=== PATIENT | male | born 1995 | race Caucasian/White ===

== ENCOUNTER 2017-08-09 10:25 | Observation (INO) ==
[2017-08-09 10:42] LABS: Basophils # 0.1 K/mm3 (0-0.2); Basophils % 0.4 % (0.1-2.0); Eosinophils # 0.1 K/mm3 (0.0-0.4); Hematocrit 51.9 % (42.0-52.0); Hemoglobin 17.2 g/dL (14.1-18.0); Lymphocytes # 3.7 K/mm3 (0.7-4.5); Lymphocytes % 27.2 K/mm3 (10-50); Mean Corpuscular HGB Conc 33.1 g/dL (31.8-35.4); Mean Corpuscular Hemoglobin 29.3 pg (27.0-31.2); Mean Corpuscular Volume 88.6 fl (80-94); Mean Platelet Volume 7.3 fl (7.4-10.4); Monocytes # 0.7 K/mm3 (0.1-1.0); Monocytes % 5.3 % (1.7-9.3); Neutrophils # 8.9 K/mm3 (1.8-7.8); Platelet Count 317 K/mm3 (142-424); Red Blood Count 5.86 M/mm3 (4.60-6.20); Red Cell Distribution Width 12.8 % (11.5-17.5); White Blood Count 13.4 K/mm3 (4.5-13.0)
[2017-08-09 11:03] LABS: Alanine Aminotransferase 21 U/L (12-78); Albumin/Globulin Ratio 1.4 (1.1-1.8); Alkaline Phosphatase 118 U/L (46-116); Anion Gap 17.3 mEq/L (5-15); Aspartate Amino Transferase 17 U/L (15-37); Blood Urea Nitrogen 5 mg/dL (7-18); Calcium 9.9 mg/dL (8.5-10.1); Carbon Dioxide 21 mmol/L (21.0-32.0); Chloride 105 mmol/L (98-107); Creatine Kinase 195 U/L (39-308); Globulin 3.5 gm/dl (1.3-3.2); Glucose 133 mg/dL (74-106); Potassium 3.3 mmoL/L (3.5-5.1); Sodium 140 mmol/L (136-145); Total Protein,Serum 8.5 gm/dL (6.4-8.2)
--- NOTE | 2017-08-09 12:30 | Emergency Department Note ---
ED Disposition Clinical Impression: Hypokalemia, Drug abuse, Palpitations, Anxiety Disposition: Admitted As Inpatient Condition on Discharge: Fair Time of Disposition: 12:30 - Critical Care Critical Care Time: No Attestation: On 08/09/17, the high probability of a clinically significant, sudden or life threatening deterioration of the following system(s) required my full and direct attention, intervention and personal management. The time I documented below is in addition to time spent performing reported procedures but includes the following listed in this critical care notation. Medical Decision Making - Medical Records Medical records reviewed: Yes: I reviewed the patient's medical records. - Bernardo Inquiry Pt receiving controlled substance: No Vital Signs: 08/09/17 10:26 08/09/17 10:31 08/09/17 11:17 Temperature 98.2 F Temperature Source Oral Pulse Rate Pulse Rate [Right Brachial] 138 H 109 H 109 H Respiratory Rate 22 20 18 Blood Pressure Blood Pressure [Right Arm] 148/107 147/94 135/96 Blood Pressure Mean [Right Arm] 120 111 109 Blood Pressure Source Blood Pressure Source [Right Arm] Automatic Cuff Automatic Cuff Automatic Cuff Blood Pressure Position Blood Pressure Position [Right Arm] Sitting Sitting Sitting 02 Sat by Pulse Oximetry 99 100 100 Oxygen Delivery Method Room Air Room Air Room Air 08/09/17 11:55 08/09/17 12:00 08/09/17 12:30 Temperature Temperature Source Pulse Rate Pulse Rate [Right Brachial] 94 H 86 78 Respiratory Rate 18 18 20 Blood Pressure Blood Pressure [Right Arm] 141/82 144/90 147/87 Blood Pressure Mean [Right Arm] 101 108 107 Blood Pressure Source Blood Pressure Source [Right Arm] Automatic Cuff Automatic Cuff Automatic Cuff Blood Pressure Position Blood Pressure Position [Right Arm] Sitting Sitting Sitting 02 Sat by Pulse Oximetry 100 97 97 Oxygen Delivery Method Room Air 08/09/17 12:44 08/09/17 12:49 08/09/17 13:00 Temperature 99.6 F Temperature Source Oral Pulse Rate 92 H Pulse Rate [Right Brachial] 79 Respiratory Rate 18 18 Blood Pressure 144/90 Blood Pressure [Right Arm] 140/78 Blood Pressure Mean [Right Arm] 98 Blood Pressure Source Automatic Cuff Blood Pressure Source [Right Arm] Automatic Cuff Blood Pressure Position Sitting Blood Pressure Position [Right Arm] Sitting 02 Sat by Pulse Oximetry 97 Oxygen Delivery Method Room Air Room Air - Lab Data Lab results reviewed: Yes: I reviewed the patient's lab results. Lab Results 08/09/17 10:30: WBC 13.4 H, RBC 5.86, Hgb 17.2, Hct 51.9, MCV 88.6, MCH 29.3, MCHC 33.1, RDW 12.8, Plt Count 317, MPV 7.3 L, Neut % (Auto) 66.0, Lymph % (Auto ) 27.2, Hodgeman % (Auto) 5.3, Eos % (Auto) 1.0, Baso % (Auto) 0.4, Neut # (Auto) 8.9 H, Lymph # (Auto) 3.7, Hodgeman # (Auto) 0.7, Eos # (Auto) 0.1, Baso # (Auto) 0.1 08/09/17 10:30: D-Dimer < 100 08/09/17 10:30: Sodium 140, Potassium 3.3 L, Chloride 105, Carbon Dioxide 21, Anion Gap 17.3 H, BUN 5 L, Creatinine 1.03 D, Estimated Creat Clear 161, Estimated GFR 92, Est GFR ( Amer) 111 D, Glucose 133 H, Calcium 9.9, Total Bilirubin 1.0, AST 17, ALT 21, Alkaline Phosphatase 118 H, Total Creatine Kinase 195, CK-MB (CK-2) 2.9, CK-MB (CK-2) Rel Index 1.5, Troponin I < 0.02, Total Protein 8.5 H, Albumin 5.0, Globulin 3.5 H, Albumin/Globulin Ratio 1.4 08/09/17 10:30: TSH 2.11 Result diagrams: 08/09/17 10:30 08/10/17 05:55 Orders (Tests/Meds): ED MEDICATIONS Generic Name Dose Route Start Last Admin Trade Name Freq PRN Reason Stop Dose Admin Sodium Chloride 1,000 mls @ 125 mls/hr 08/09/17 12:46 08/10/17 04:46 Sod Chlor 0.9% 1000ml Bag IV 09/08/17 12:45 Not Given .Q8H REX Potassium Chloride 20 meq 08/10/17 09:00 Klor-Con 20meq Tablet PO 09/09/17 08:59 DAILY REX Sertraline HCl 50 mg 08/10/17 09:00 Zoloft 50mg Tablet PO 09/09/17 08:59 DAILY REX Discontinued Medications Generic Name Dose Route Start Last Admin Trade Name Grayson PRN Reason Stop Dose Admin Hydroxyzine Pamoate 50 mg 08/10/17 03:00 08/10/17 03:10 Vistaril 25mg Capsule PO 08/10/17 03:01 50 mg ONCE ONE Administration Potassium Chloride 40 meq 08/09/17 11:40 08/09/17 12:21 Klor-Con 20meq Tablet PO 08/09/17 11:41 40 meq ONCE ONE Administration ORDERS Category Date Time Status Consult to Case Management [CONS] Routine Cons 08/09/17 12:46 Active - US Data US Images: Other (2D ECHO) ED US Reviewed: Yes: I have reviewed the patient's US results, I discussed the US results w/the radiologist, I have viewed radiologist's interpretation Preliminary Findings: Normal/NAD Findings Narrative: [address] [facility] [address] [place] [address] Cardiology Report Signed Patient: Ed Alatorre MR#: [id number] : 1995 Acct:[id number] Age/Sex: 21 / M ADM Date: 08/09/17 Loc: 2ND 204-[address]: Aung Jones MD Ordering Physician: Kp Polk MD Date of Service: 08/09/17 Procedure(s): CA echo doppler complete Accession Number(s): [id number] cc: Kp Polk MD; Chadwick Alexandra MD~ PROCEDURE: 2-D M-mode and color Doppler study INDICATIONS FOR THE TEST: Chest pain COPD Heart Murmur+ Tobacco Smoking+ Palpitations+ Fatigue Syncope Edema Hypertension Diabetes Mellitus Rheumatic Fever SOB EGAN+Obesity Hyperlipidemia Family History HD Additional History Ecstasy and ETHOL last night with palpitations after, lightheadedness, Asthma, PATIENT INFORMATION HEIGHT: 75 WEIGHT: 220 GENDER: Male B/P: 141/84 2-D/M-MODE INTERPRETATION: 2-D MEASUREMENTS OBSERVED VALUES IN CMS Right Ventricular Dimension (RVDd) 2.5 Interventricular Septum (Thickness)(IVsd) 1.1 Left Ventricular Internal Dimensions(LVIDd) 3.9 Left Ventricular Posterior Wall (Thickness)(LVPWd) 1.1 Aortic Root 3.2 Aortic Cusp Separation 2.4 Left Atrial Dimensions (LAD) 3.0 2D 1. Left atrium is normal size, left ventricle is normal size, there is no concentric left ventricular hypertrophy, visually estimated ejection fraction of 55% with no obvious regional wall motion abnormality. 2. The right atrium and right ventricle are normal size and contractility. 3. The aortic, mitral and tricuspid valve is normal. 4. The pulmonic valve is poorly visualized. 5. No significant pericardial effusion noted. DOPPLER INTERROGATION: Doppler interrogation of the aortic, mitral and tricuspid valvular presence of mild mitral and tricuspid regurgitation, tricuspid regurgitant jet velocity is insufficient for calculation of the right ventricular systolic pressure, diastolic parameters are within normal range. CONCLUSION: 1. Normal left ventricular size, preserved left ventricular systolic function, visually estimated ejection fraction 55% with no obvious regional wall motion abnormality, diastolic parameters are within normal range. 2. Mild mitral and tricuspid regurgitation 3. No significant pericardial effusion noted. Dictated By: Chadwick Alexandra MD Signed By: <Electronically signed by Chadwick Alexandra MD in OV> 08/09/17 2106 DD/ 1223 - ECG Data Tracing #1 I reviewed this ECG and interpreted as documented below: no acute ischemic changes, no ectopies Normal Sinus Rhythm: No Arrhythmias present: sinus tach - Physician Consults Physician Consulted: Dr Donovan Time: 12:20 Reason -: Admission, Pt condition, Cardiology Eval/Care Comment/Response: Dr. Deondre Donovan came to the emergency room with his PA, evaluated patient, recommended an echocardiogram was eventually read as all within normal limits. Dr. Donovan cleared patient from cardiology standpoint. - Reevaluation(s) Time: 12:10 Reevaluation #1: Patient is remorseful, genetic to his family about his drug habit, and is seeking help. Plan is to admit patient to the hospital for drug abuse and palpitations, and when medically stable to seek placement with outpatient rehab facility. Case discussed with care management as well, prior to admission. She will see the patient upstairs. Anxiety HPI - General Chief Complaint: Anxiety Stated Complaint: anxiety, heart racing Time Seen by Provider: 08/09/17 10:35 Mode of Arrival: Ambulatory Source of Information: Patient Limitations: No Limitations Description of Symptoms (Recalled from ER Triage Doc. by RN): Pt reports feeling anxious, states hasn't felt well since he woke up this morning, states feels like his heart is racing. Pt reports was in the ER lastnight r/t his heart racing r/t ecstacy use [employer]. Pt denies presence of pain. Upon arrival to ER pt RR was elevated, pt hands were clenched, pt appearted to be anxious. - History of Present Illness HPI narrative: Patient is a 21-year-old male arriving to the emergency room feeling apprehensive, anxious, with palpitations, shortness of breath since waking up this morning. Patient was seen in the emergency room last night, with similar complaints, after he admitted to his mother that he has done 1 dose of ecstasy 24 hrs prior. Upon arrival to the emergency room the patient has also admitted today that in addition to the ecstasy done 2 days ago he is also been being amphetamine, cocaine and smoking weed occasionally. Patient denies any suicidal or homicidal ideation. Parent at bedside. Patient walked into the emergency room with fingers playing with perioral numbness and fingertips numbness. He has not eaten a meal or had fluids to drink within 3 days. MD complaint: anxiety, heart racing, shortness of breath Onset (ago): minute(s) (60) Severity: moderate Quality: intermittent Place: home History of similar episodes: Yes Provoking factors: emotional stress, other (ecstasy) Relieving factors: rest Exacerbating factors: thinking about event Associated symptoms: shortness of breath, palpitations, malaise - Related Data Home Medications: Home Medications Medication Instructions Recorded Confirmed Sertraline HCl [Zoloft] 50 mg PO DAILY 08/08/17 08/09/17 Allergies/Adverse Reactions: Allergies Allergy/AdvReac Type Severity Reaction Status Date / Time No Known Allergies Allergy Unverified 01/26/17 15:00 [facility] History I have reviewed the patient's past medical history: Yes Medical History: Denies:: Cancer, Diabetes Mellitus Type 1, Diabetes Mellitus Type 2, MRSA Amputation: No Fractures: No - Social History Smoking Status: Current every day smoker Tobacco Type: cigarettes Alcohol Intake: never Substance Use Type: marijuana - Psychiatric History Expresses thoughts of harming self/others: None Suicide Plan Description: No Plan ROS Obtained: Yes All systems reviewed & no additional complaints, Yes Systems reviewed as appropriate & no additional complaints - Cardiovascular Cardiovascular: Reports system reviewed and no additional complaints, except as docu, Reports as per HPI, Reports palpitations - Respiratory Respiratory: Yes system reviewed and no additional complaints, except as docu, Yes as per HPI, Yes dyspnea - Neurologic Neurologic: Reports system reviewed and no additional complaints, except as docu , Reports as per HPI, Reports other (anxiety) Physical Exam - General General appearance: alert, anxious, in distress - Head Head exam: atraumatic, normocephalic, normal inspection - Eye Eye exam: Present: normal appearance, PERRL, EOMI, other (normal fundi) - Neck Neck exam: Present: normal inspection, full ROM, trachea midline. Absent: meningismus, lymphadenopathy - Chest Chest inspection: Present: normal inspection, symmetric chest wall rise. Absent : tenderness - Respiratory Respiratory exam: Present: normal lung sounds bilaterally. Absent: respiratory distress - Cardiovascular Cardiovascular exam: Present: tachycardia. Absent: JVD - Abdominal Exam Abdominal exam: Present: soft, normal bowel sounds. Absent: distention, tenderness, guarding - Extremities Exam Extremities exam: Present: normal inspection, full ROM, normal capillary refill. Absent: calf tenderness - Back Exam Back exam: Present: normal inspection. Absent: tenderness - Neurological Exam Neurological exam: Present: alert, oriented X3, CN II-XII intact, normal gait - Psychiatric Psychiatric exam: Present: normal affect, normal mood - Skin Skin exam: Present: warm, dry, intact, normal color
--- NOTE | 2017-08-09 13:03 | Consult Report ---
History of Present Illness Consult date: 08/09/17 Consult reason: chest pain Chief complaint: chest pain and palpitations Additional Medical History:: 1. Chest pain a. Pressure of the left chest wall for past 2 days after experimenting with illegal drugs. b. second visit to the ER in past one day for chest pressure. 2. Anxiety a. History of panic attacks. 3. Palpitations a. Experimenting with illegal drugs 4. Tobacco abuse a. Smokes 1pp for the past 3 years. 5. Substance Abuse a. Regular usage of Marijuania for past 1-2 years. b. Experimenting with usage of Meth and Ectasy. History of present illness: 21-year-old male admitted to the emergency room with palpitations and chest pain. Patient stated that he has been experimenting with illegal drugs such as meth and ecstasy for the past few days. Patient started experiencing left chest wall pain and palpitations 2 days ago in which he did present in the emergency room with these complaints. Patient stated that he has been depressed for a few weeks feels much better and is able to focus more when he is taking marijuana. Patient denies any suicidal ideation. Patient stated that he smokes 1 pack per day of cigarettes and has for a few years. He denies shortness of breath. Denies any swelling of his lower extremities. Denies dizziness. Patient denies coronary artery disease or hypertension. Initial EKG revealed sinus tachycardia, possible left atrial enlargement, ST abnormality, with a heart rate of 125bpm. ED physician said that patient presented in the emergency room yesterday, his heart rate was in the 150s. Baseline labs in the ER were obtained. Echocardiogram will be obtained to assess for LV function and valve status. Patient was agreeable with mother and aunt in the room, while Dr. Donovan spoke with patient regarding illegal substance abuse. Lengthy discussion on the effects of substance abuse on the heart was discussed with the patient. Patient was very tearful and stated that he knows he needs assistance. No further cardiac evaluation is recommended at this time. Tobacco cessation was advised and recommended. Substance abuse cessation was advised and recommended. ER physician was agreeable to plan. We will have patient follow-up with cardiology on an as-needed basis. [facility] History Medical History: Denies:: Cancer, Diabetes Mellitus Type 1, Diabetes Mellitus Type 2, MRSA Amputation: No Fractures: No - *Social History Smoking Status: Current every day smoker Tobacco Type: cigarettes Alcohol Intake: never Substance Use Type: marijuana - Psychiatric History Expresses thoughts of harming self/others: None Suicide Plan Description: No Plan Meds Home Medications Medication Instructions Recorded Confirmed Type Sertraline HCl [Zoloft] 50 mg PO DAILY 08/08/17 08/09/17 History Allergies Allergy/AdvReac Type Severity Reaction Status Date / Time No Known Allergies Allergy Unverified 01/26/17 15:00 Review of Systems - Review of Systems Review of systems:: pertinent systems reviewed and negative unless documented below - Constitutional Reports excessive sweating, Reports lack of energy - *Cardiovascular Reports chest pain, Reports chest pain at rest, Reports chest pain with activity , Reports excessive sweating, Reports fast heart rate - *Respiratory Denies chest congestion, Denies cough, Denies shortness of breath, Denies shortness of breath with activity, Denies wheezing - *Gastrointestinal Denies abdominal pain, Denies difficulty swallowing, Denies heartburn - *Musculoskeletal Denies abnormal walking, Denies muscle weakness, Denies stiffness - *Neurologic Denies abnormal walking, Denies confusion, Denies headache(s), Denies seizure- like activity, Denies dizziness - Psychiatric Reports abnormal sleep pattern, Reports lack of enjoyment, Reports anxiety, Reports change in appetite, Reports mood swings, Reports panic attacks, Denies hearing things others do not hear, Denies thoughts of hurting/killing others, Denies irritability, Denies thoughts of hurting/killing yourself, Denies tactile hallucinations, Denies seeing things others do not see Exam Vital signs and Labs for Last 24 Hours: Temp Pulse Resp BP Pulse Ox 99.6 F 79 18 140/78 97 08/09/17 12:44 08/09/17 12:49 08/09/17 12:49 08/09/17 12:49 08/09/17 12:49 Laboratory Results - last 24 hr 08/09/17 10:30: WBC 13.4 H, RBC 5.86, Hgb 17.2, Hct 51.9, MCV 88.6, MCH 29.3, MCHC 33.1, RDW 12.8, Plt Count 317, MPV 7.3 L, Neut % (Auto) 66.0, Lymph % (Auto ) 27.2, Schley % (Auto) 5.3, Eos % (Auto) 1.0, Baso % (Auto) 0.4, Neut # (Auto) 8.9 H, Lymph # (Auto) 3.7, Schley # (Auto) 0.7, Eos # (Auto) 0.1, Baso # (Auto) 0.1 08/09/17 10:30: D-Dimer < 100 08/09/17 10:30: Sodium 140, Potassium 3.3 L, Chloride 105, Carbon Dioxide 21, Anion Gap 17.3 H, BUN 5 L, Creatinine 1.03 D, Estimated Creat Clear 161, Estimated GFR 92, Est GFR ( Amer) 111 D, Glucose 133 H, Calcium 9.9, Total Bilirubin 1.0, AST 17, ALT 21, Alkaline Phosphatase 118 H, Total Creatine Kinase 195, CK-MB (CK-2) 2.9, CK-MB (CK-2) Rel Index 1.5, Troponin I < 0.02, Total Protein 8.5 H, Albumin 5.0, Globulin 3.5 H, Albumin/Globulin Ratio 1.4 08/09/17 10:30: TSH 2.11 I & O for Last 24 hours: Intake & Output 08/06/17 08/07/17 08/08/17 08/09/17 23:59 23:59 23:59 23:59 Weight 220 lb - Constitutional no acute distress, average body habitus - *Routine HEENT Exam Head: Present: normocephalic ENT: Present: mucous membranes moist - *Routine Neck Exam Present: supple, full ROM, normal carotid upstroke. Absent: JVD, carotid bruit , lymphadenopathy, trachea midline - Routine Chest/Breast/Axilla Exam Chest wall: Absent: tenderness, mass - *Routine Respiratory Exam Present: accessory muscle use, CTA bilaterally. Absent: respiratory distress, wheezes - *Routine Cardiovascular Exam Present: RRR, Normal S1, Normal S2, tachycardia. Absent: murmur, gallop, rubs, JVD - *Routine Abdominal Exam Present: soft. Absent: guarding - *Routine Extremities Exam Present: full ROM, pulses intact, normal capillary refill. Absent: cyanosis, clubbing, edema - Routine Back/Spine/Pelvis Exam Back/Spine: Present: full ROM. Absent: CVA tenderness - *Routine Skin Exam Present: intact, dry, warm. Absent: lesions - *Routine Neurological Exam Present: alert, oriented X3, CN II-XII intact, moving all extremities, normal speech - Routine Psychiatric Exam Present: normal affect, cooperative, anxious. 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 Obtain Echocardiogram prior to discharge from the Emergency department. 2. Tobacco cessation advised and recommended. 3. Substance abuse cessation advised and recommended. 4. Cardiac clinic follow up as needed.
--- NOTE | 2017-08-09 13:37 | Pharmacy Consult Notes ---
[facility] Pharmacy VTE Monitoring - Patient Demographics Admission date: 08/09/17 Report Date: 08/09/17 Time: 13:37 Allergies/Adverse Reactions: Patient Allergies No Known Allergies Allergy (Unverified 01/26/17 15:00) Height: 1.91 m Weight: 99.79 kg Patient Problems: Current Active Problems Hypokalemia (Acute) Drug abuse (Acute) Palpitations (Acute) - VTE Risk Labs: VTE Related Lab Results Hgb 17.2 g/dL (14.1-18.0) 08/09/17 10:30 Hct 51.9 % (42.0-52.0) 08/09/17 10:30 Plt Count 317 K/mm3 (142-424) 08/09/17 10:30 BUN 5 mg/dL (7-18) L 08/09/17 10:30 Creatinine 1.03 mg/dL (0.70-1.30) D 08/09/17 10:30 Estimated Creat Clear 161 mL/min (0-300) 08/09/17 10:30 Clinical Trial Participant: No - Prophylaxis VTE Prophylaxis Ordered?: Yes Types of VTE Prophylaxis: TEDS Knee High
--- NOTE | 2017-08-09 15:12 | History & Physical Report ---
*Admission Date: 08/09/17 <MeyerHaydeeKristin 08/09/17 15:16> *Chief complaint: heart racing and chest pain <Kristin Meyer 08/09/17 15:16> *History of present illness: Mr. Alatorre is a 21-year-old white male who presented to the emergency room this a.m. after awakening with chest pressure and heart racing. He states this all started yesterday as a result of using ecstasy and other drugs. He was actually seen in the emergency room yesterday and given IV fluids and metoprolol IV. He was discharged home. He states his heart continued to race. He was able to rest a little during the night but awakened this morning again with a rapid heart rate. Thus he was seen in the emergency room again this a.m. He has also been seen by cardiology and remains on IV fluids. Initial EKG revealed sinus tachycardia, possible left atrial enlargement, ST abnormality, with a heart rate of 125bpm. ED physician said that patient presented in the emergency room yesterday, his heart rate was in the 150s. Baseline labs in the ER were obtained. Echocardiogram will be obtained to assess for LV function and valve status. As per cardiology note patient was agreeable with mother and aunt in the room, while Dr. Donovan spoke with patient regarding illegal substance abuse. Lengthy discussion on the effects of substance abuse on the heart was discussed with the patient. Patient was very tearful and stated that he knows he needs assistance. Patient states he is just now beginning to feel better. He has had a few bites of applesauce without problems. He has been voiding. <Kristin Meyer 08/09/17 15:26> [facility] History Medical History: Reports:: Asthma, Depression, Gastroesophageal Reflux Disease( GERD) Denies:: Atherosclerotic Heart Disease, Cancer, Chronic Obstructive Pulmonary Disease (COPD), Diabetes Mellitus Type 1, Diabetes Mellitus Type 2, Internal Pacemaker, MRSA <Kristin Meyer 08/09/17 15:26> Other Surgeries: No: Pacemaker <Kristin Meyer 08/09/17 15:16> Amputation: No <Kristin Meyer 08/09/17 15:16> Fractures: No <Kristin Meyer 08/09/17 15:16> - *Social History Educational Level: Attended [employer] <Kristin Meyer 08/09/17 15:16> Smoking Status: Current every day smoker <MitchKristin 08/09/17 15:16> Tobacco Type: cigarettes <MitchKristin 08/09/17 15:16> # Packs/Day (cigarettes): 1 <Kristin Meyer 08/09/17 15:16> Alcohol Intake: never <MitchKristin 08/09/17 15:16> Alcohol Intake Frequency:: a few times a week <MeyerKristin 08/09/17 15:16> Substance Use Type: marijuana <MitchKristin 08/09/17 15:16> Last Used Substance: days (ago) <MitchKristin 08/09/17 15:16> Occupational Status: employed <MitchKristin 08/09/17 15:16> Housing: house <MitchKristin 08/09/17 15:16> Household Members: family <MitchKristin 08/09/17 15:16> - Psychiatric History Expresses thoughts of harming self/others: None <MitchKristin 08/09/17 15: 16> Suicide Plan Description: No Plan <MitchKristin 08/09/17 15:16> *Family Hx:: No significant family history <MitchKristin 08/09/17 15:16> Review of Systems - Constitutional Denies fever(s), Denies headache(s) <Meyer,Kristin 08/09/17 15:26> - ENT Denies ear pain, Denies sore throat <Meyer,Kristin 08/09/17 15:26> - *Cardiovascular Reports chest pain, Reports rapid, pounding, or irregular heartbeat, Denies shortness of breath, Denies leg swelling <Meyer,Kristin 08/09/17 15:26> - *Respiratory Denies chest congestion, Denies cough, Denies shortness of breath <Meyer, Kristin 08/09/17 15:26> - *Gastrointestinal Denies abdominal pain, Denies heartburn, Denies nausea, Denies vomiting < Kristin Meyer 08/09/17 15:26> - *Genitourinary Denies difficulty urinating <Kristin Meyer - 08/09/17 15:26> - *Musculoskeletal Denies abnormal walking <Kristin Meyer - 08/09/17 15:26> - *Neurologic Denies abnormal walking, Denies confusion, Denies headache(s), Denies seizure- like activity, Denies dizziness <Kristin Meyer - 08/09/17 15:16> Meds Home Medications Medication Instructions Recorded Confirmed Type Sertraline HCl [Zoloft] 50 mg PO DAILY 08/08/17 08/09/17 History <KarenAung peterson - 08/09/17 18:18> Allergies Allergy/AdvReac Type Severity Reaction Status Date / Time No Known Allergies Allergy Unverified 01/26/17 15:00 <Aung Jones - 08/09/17 18:18> Exam Vital signs and Labs for Last 24 Hours: Temp Pulse Resp BP Pulse Ox 98.7 F 92 H 16 149/77 97 08/09/17 16:00 08/09/17 16:00 08/09/17 16:00 08/09/17 16:00 08/09/17 16:00 Laboratory Results - last 24 hr 08/09/17 10:30: WBC 13.4 H, RBC 5.86, Hgb 17.2, Hct 51.9, MCV 88.6, MCH 29.3, MCHC 33.1, RDW 12.8, Plt Count 317, MPV 7.3 L, Neut % (Auto) 66.0, Lymph % (Auto ) 27.2, [place] % (Auto) 5.3, Eos % (Auto) 1.0, Baso % (Auto) 0.4, Neut # (Auto) 8.9 H, Lymph # (Auto) 3.7, [place] # (Auto) 0.7, Eos # (Auto) 0.1, Baso # (Auto) 0.1 08/09/17 10:30: D-Dimer < 100 08/09/17 10:30: Sodium 140, Potassium 3.3 L, Chloride 105, Carbon Dioxide 21, Anion Gap 17.3 H, BUN 5 L, Creatinine 1.03 D, Estimated Creat Clear 161, Estimated GFR 92, Est GFR ( Amer) 111 D, Glucose 133 H, Calcium 9.9, Total Bilirubin 1.0, AST 17, ALT 21, Alkaline Phosphatase 118 H, Total Creatine Kinase 195, CK-MB (CK-2) 2.9, CK-MB (CK-2) Rel Index 1.5, Troponin I < 0.02, Total Protein 8.5 H, Albumin 5.0, Globulin 3.5 H, Albumin/Globulin Ratio 1.4 08/09/17 10:30: TSH 2.11 <Aung Jones - 08/09/17 18:18> Temp Pulse Resp BP Pulse Ox 98.4 F 115 H 18 149/93 99 08/09/17 13:36 08/09/17 13:36 08/09/17 13:36 08/09/17 13:36 08/09/17 13:36 Laboratory Results - last 24 hr 08/09/17 10:30: WBC 13.4 H, RBC 5.86, Hgb 17.2, Hct 51.9, MCV 88.6, MCH 29.3, MCHC 33.1, RDW 12.8, Plt Count 317, MPV 7.3 L, Neut % (Auto) 66.0, Lymph % (Auto ) 27.2, [place] % (Auto) 5.3, Eos % (Auto) 1.0, Baso % (Auto) 0.4, Neut # (Auto) 8.9 H, Lymph # (Auto) 3.7, [place] # (Auto) 0.7, Eos # (Auto) 0.1, Baso # (Auto) 0.1 08/09/17 10:30: D-Dimer < 100 08/09/17 10:30: Sodium 140, Potassium 3.3 L, Chloride 105, Carbon Dioxide 21, Anion Gap 17.3 H, BUN 5 L, Creatinine 1.03 D, Estimated Creat Clear 161, Estimated GFR 92, Est GFR ( Amer) 111 D, Glucose 133 H, Calcium 9.9, Total Bilirubin 1.0, AST 17, ALT 21, Alkaline Phosphatase 118 H, Total Creatine Kinase 195, CK-MB (CK-2) 2.9, CK-MB (CK-2) Rel Index 1.5, Troponin I < 0.02, Total Protein 8.5 H, Albumin 5.0, Globulin 3.5 H, Albumin/Globulin Ratio 1.4 08/09/17 10:30: TSH 2.11 <Kristin Meyer 08/09/17 15:16> I & O for Last 24 hours: Intake & Output 08/07/17 08/08/17 08/09/17 08/10/17 11:59 11:59 11:59 11:59 Weight 220 lb 220 lb <Aung Jones - 08/09/17 18:18> Intake & Output 08/07/17 08/08/17 08/09/17 08/10/17 11:59 11:59 11:59 11:59 Weight 220 lb 220 lb <Kristin Meyer 08/09/17 15:16> - Constitutional no acute distress <Kristin Meyer 08/09/17 15:26> - *Routine HEENT Exam Head: Present: normocephalic, atraumatic <Kristin Meyer 08/09/17 15:26> Eye: Present: PERRL <Kristin Meyer 08/09/17 15:26> ENT: Present: mucous membranes moist, oropharynx clear, nares patent <Kristin Meyer 08/09/17 15:26> - *Routine Neck Exam Present: supple. Absent: carotid bruit, lymphadenopathy, thyromegaly <Kristin Meyer 08/09/17 15:26> - *Routine Respiratory Exam Present: CTA bilaterally (Anteriorly and posteriorly) <Kristin Meyer 15:26> - *Routine Cardiovascular Exam Present: RRR <Kristin Meyer 08/09/17 15:26> - *Routine Abdominal Exam Present: soft, normoactive bowel sounds. Absent: tenderness, distended, guarding, organomegaly, mass <Kristin Meyer 08/09/17 15:26> - *Routine Extremities Exam Present: full ROM. Absent: edema, calf tenderness <Kristin Meyer 08/09/17 15:26> - *Routine Neurological Exam Present: alert, oriented X3, moving all extremities, normal speech. Absent: tremors <Kristin Meyer 08/09/17 15:26> - Routine Psychiatric Exam Present: normal thought process, cooperative, anxious <Kristin Meyer 15:26> H&P: Result - Labs Labs: Short CBC 08/09/17 Range/Units 10:30 WBC 13.4 H (4.5-13.0) K/mm3 Hgb 17.2 (14.1-18.0) g/dL Hct 51.9 (42.0-52.0) % Plt Count 317 (142-424) K/mm3 [facility] 08/09/17 10:30 Sodium 140 Potassium 3.3 L Chloride 105 Carbon Dioxide 21 BUN 5 L Creatinine 1.03 D Glucose 133 H Calcium 9.9 Cardiac Enzymes 08/09/17 Range/Units 10:30 Total Creatine Kinase 195 (39-308) U/L CK-MB (CK-2) 2.9 (0.0-3.6) ng/ml Troponin I < 0.02 (0.00-0.06) ng/ml Liver Function 08/09/17 Range/Units 10:30 Total Bilirubin 1.0 (0.2-1.0) mg/dL AST 17 (15-37) U/L ALT 21 (12-78) U/L Alkaline Phosphatase 118 H (46-116) U/L Albumin 5.0 (3.4-5.0) gm/dL <Aung Jones - 08/09/17 18:18> Short CBC 08/09/17 Range/Units 10:30 WBC 13.4 H (4.5-13.0) K/mm3 Hgb 17.2 (14.1-18.0) g/dL Hct 51.9 (42.0-52.0) % Plt Count 317 (142-424) K/mm3 [facility] 08/09/17 10:30 Sodium 140 Potassium 3.3 L Chloride 105 Carbon Dioxide 21 BUN 5 L Creatinine 1.03 D Glucose 133 H Calcium 9.9 Cardiac Enzymes 08/09/17 Range/Units 10:30 Total Creatine Kinase 195 (39-308) U/L CK-MB (CK-2) 2.9 (0.0-3.6) ng/ml Troponin I < 0.02 (0.00-0.06) ng/ml Liver Function 08/09/17 Range/Units 10:30 Total Bilirubin 1.0 (0.2-1.0) mg/dL AST 17 (15-37) U/L ALT 21 (12-78) U/L Alkaline Phosphatase 118 H (46-116) U/L Albumin 5.0 (3.4-5.0) gm/dL <Kristin Meyer - 08/09/17 15:16> 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.10 - Hallucinogen abuse, uncomplicated (2) Drug abuse Current visit: Yes Status: Acute Category: Medical Code(s): F19.10 - Other psychoactive substance abuse, uncomplicated (3) Palpitations Current visit: Yes Status: Acute Category: Medical Code(s): R00.2 - Palpitations (4) Hypokalemia Current visit: Yes Status: Acute Category: Medical Code(s): E87.6 - Hypokalemia <Aung Jones - 08/09/17 18:18> (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 Concur with above assessment and plan. He has been accepted at [facility] rehab when deemed medically stable. Will repeat labs in AM but should be ready for discharge tomorrow. <Aung Jones - 08/09/17 18:18> IVF's; ECHO; has received KCL <Kristin Meyer - 08/09/17 15:26>
--- NOTE | 2017-08-09 21:11 | Cardiology Report ---
PROCEDURE: 2-D M-mode and color Doppler study INDICATIONS FOR THE TEST: Chest pain COPD Heart Murmur+ Tobacco Smoking+ Palpitations+ Fatigue Syncope Edema Hypertension Diabetes Mellitus Rheumatic Fever SOB EGAN+Obesity Hyperlipidemia Family History HD Additional History Ecstasy and ETHOL last night with palpitations after, lightheadedness, Asthma, PATIENT INFORMATION HEIGHT: 75 WEIGHT: 220 GENDER: Male B/P: 141/84 2-D/M-MODE INTERPRETATION: 2-D MEASUREMENTS OBSERVED VALUES IN CMS Right Ventricular Dimension (RVDd) 2.5 Interventricular Septum (Thickness)(IVsd) 1.1 Left Ventricular Internal Dimensions(LVIDd) 3.9 Left Ventricular Posterior Wall (Thickness)(LVPWd) 1.1 Aortic Root 3.2 Aortic Cusp Separation 2.4 Left Atrial Dimensions (LAD) 3.0 2D 1. Left atrium is normal size, left ventricle is normal size, there is no concentric left ventricular hypertrophy, visually estimated ejection fraction of 55% with no obvious regional wall motion abnormality. 2. The right atrium and right ventricle are normal size and contractility. 3. The aortic, mitral and tricuspid valve is normal. 4. The pulmonic valve is poorly visualized. 5. No significant pericardial effusion noted. DOPPLER INTERROGATION: Doppler interrogation of the aortic, mitral and tricuspid valvular presence of mild mitral and tricuspid regurgitation, tricuspid regurgitant jet velocity is insufficient for calculation of the right ventricular systolic pressure, diastolic parameters are within normal range. CONCLUSION: 1. Normal left ventricular size, preserved left ventricular systolic function, visually estimated ejection fraction 55% with no obvious regional wall motion abnormality, diastolic parameters are within normal range. 2. Mild mitral and tricuspid regurgitation 3. No significant pericardial effusion noted.
[2017-08-10 06:39] LABS: Anion Gap 12.7 mEq/L (5-15); Calcium 9.6 mg/dL (8.5-10.1); Potassium 3.7 mmoL/L (3.5-5.1)
--- NOTE | 2017-08-10 07:52 | Progress Note ---
<Kristin Meyer - Last Filed: 08/10/17 07:53> Internal Medicine - PN: Subj *Date: 08/10/17 *Time: 07:53 Interval history: Patient feels better this morning. He had Vistaril around 3:00 when he was unable to relax and goes he states he felt anxious and cannot stop thinking about everything. He did eat some dinner last night and did well. He is getting ready to eat breakfast. He denies chest pain and shortness of breath. He has no paresthesias. Heart has been regular without palpitations. He is voiding without difficulty and bowels have moved. Labs are normal this morning. Exam Vital signs and Labs for Last 24 Hours: Temp Pulse Resp BP Pulse Ox 97.7 F 84 18 122/74 98 08/10/17 07:46 08/10/17 07:46 08/10/17 07:46 08/10/17 07:46 08/10/17 07:46 Laboratory Results - last 24 hr 08/09/17 10:30: WBC 13.4 H, RBC 5.86, Hgb 17.2, Hct 51.9, MCV 88.6, MCH 29.3, MCHC 33.1, RDW 12.8, Plt Count 317, MPV 7.3 L, Neut % (Auto) 66.0, Lymph % (Auto ) 27.2, [place] % (Auto) 5.3, Eos % (Auto) 1.0, Baso % (Auto) 0.4, Neut # (Auto) 8.9 H, Lymph # (Auto) 3.7, [place] # (Auto) 0.7, Eos # (Auto) 0.1, Baso # (Auto) 0.1 08/09/17 10:30: D-Dimer < 100 08/09/17 10:30: Sodium 140, Potassium 3.3 L, Chloride 105, Carbon Dioxide 21, Anion Gap 17.3 H, BUN 5 L, Creatinine 1.03 D, Estimated Creat Clear 161, Estimated GFR 92, Est GFR ( Amer) 111 D, Glucose 133 H, Calcium 9.9, Total Bilirubin 1.0, AST 17, ALT 21, Alkaline Phosphatase 118 H, Total Creatine Kinase 195, CK-MB (CK-2) 2.9, CK-MB (CK-2) Rel Index 1.5, Troponin I < 0.02, Total Protein 8.5 H, Albumin 5.0, Globulin 3.5 H, Albumin/Globulin Ratio 1.4 08/09/17 10:30: TSH 2.11 08/10/17 05:55: Sodium 142, Potassium 3.7, Chloride 107, Carbon Dioxide 26 D, Anion Gap 12.7, BUN 6 L, Creatinine 0.98, Estimated Creat Clear 170, Estimated GFR 98, Est GFR ( Amer) 118, Glucose 96 D, Calcium 9.6 I & O for Last 24 hours: Intake & Output 08/07/17 08/08/17 08/09/17 08/10/17 11:59 11:59 11:59 11:59 Intake Total 240 / 240 Output Total 700 / 700 Balance -460 / -460 Weight 220 lb 220 lb - Constitutional no acute distress - *Routine Respiratory Exam Present: CTA bilaterally (Anteriorly and posteriorly) - *Routine Cardiovascular Exam Present: RRR - *Routine Abdominal Exam Present: soft, normoactive bowel sounds. Absent: tenderness, distended, guarding - *Routine Extremities Exam Absent: edema, calf tenderness - *Routine Neurological Exam Present: alert, oriented X3 - Routine Psychiatric Exam Present: normal thought process Comments: Appears very relaxed this morning. 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.10 - Hallucinogen abuse, uncomplicated (2) Drug abuse Current visit: Yes Status: Acute Category: Medical Code(s): F19.10 - Other psychoactive substance abuse, uncomplicated (3) Palpitations Current visit: Yes Status: Acute Category: Medical Code(s): R00.2 - Palpitations (4) Hypokalemia Current visit: Yes Status: Acute Category: Medical Code(s): E87.6 - Hypokalemia - Assessment and plan all Dx Assessment and Plan for all problems:: Plan is for patient to be discharged today and go to [facility] rehab <Aung Jones - Last Filed: 08/10/17 08:38> Internal Medicine - PN: Subj *Date: 08/10/17 *Time: 08:36 Exam Vital signs and Labs for Last 24 Hours: Temp Pulse Resp BP Pulse Ox 97.7 F 84 18 122/74 98 08/10/17 07:46 08/10/17 07:46 08/10/17 07:46 08/10/17 07:46 08/10/17 07:46 Laboratory Results - last 24 hr 08/09/17 10:30: WBC 13.4 H, RBC 5.86, Hgb 17.2, Hct 51.9, MCV 88.6, MCH 29.3, MCHC 33.1, RDW 12.8, Plt Count 317, MPV 7.3 L, Neut % (Auto) 66.0, Lymph % (Auto ) 27.2, [place] % (Auto) 5.3, Eos % (Auto) 1.0, Baso % (Auto) 0.4, Neut # (Auto) 8.9 H, Lymph # (Auto) 3.7, [place] # (Auto) 0.7, Eos # (Auto) 0.1, Baso # (Auto) 0.1 08/09/17 10:30: D-Dimer < 100 08/09/17 10:30: Sodium 140, Potassium 3.3 L, Chloride 105, Carbon Dioxide 21, Anion Gap 17.3 H, BUN 5 L, Creatinine 1.03 D, Estimated Creat Clear 161, Estimated GFR 92, Est GFR ( Amer) 111 D, Glucose 133 H, Calcium 9.9, Total Bilirubin 1.0, AST 17, ALT 21, Alkaline Phosphatase 118 H, Total Creatine Kinase 195, CK-MB (CK-2) 2.9, CK-MB (CK-2) Rel Index 1.5, Troponin I < 0.02, Total Protein 8.5 H, Albumin 5.0, Globulin 3.5 H, Albumin/Globulin Ratio 1.4 08/09/17 10:30: TSH 2.11 08/10/17 05:55: Sodium 142, Potassium 3.7, Chloride 107, Carbon Dioxide 26 D, Anion Gap 12.7, BUN 6 L, Creatinine 0.98, Estimated Creat Clear 170, Estimated GFR 98, Est GFR ( Amer) 118, Glucose 96 D, Calcium 9.6 I & O for Last 24 hours: Intake & Output 08/07/17 08/08/17 08/09/17 08/10/17 11:59 11:59 11:59 11:59 Intake Total 240 / 240 Output Total 700 / 700 Balance -460 / -460 Weight 220 lb 220 lb 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 He did sleep some after the Vistaril last night and feels better this AM. He is tolerating diet. Concur with plan for discharge to inpatient rehab facility.
--- NOTE | 2017-08-10 16:28 | Discharge Summary ---
General - General Admission date:: 08/09/17 <Aung Jones - 08/17/17 16:40> 08/09/17 <Sheree Almeida - 08/10/17 16:28> Discharge date: 08/10/17 <Sheree Almeida - 08/10/17 16:28> HPI HPI: Mr. Alatorre is a 21-year-old white male who presented to the emergency room this a.m. after awakening with chest pressure and heart racing. He states this all started yesterday as a result of using ecstasy and other drugs. He was actually seen in the emergency room yesterday and given IV fluids and metoprolol IV. He was discharged home. He states his heart continued to race. He was able to rest a little during the night but awakened this morning again with a rapid heart rate. Thus he was seen in the emergency room again this a.m. He has also been seen by cardiology and remains on IV fluids. Initial EKG revealed sinus tachycardia, possible left atrial enlargement, ST abnormality, with a heart rate of 125bpm. ED physician said that patient presented in the emergency room yesterday, his heart rate was in the 150s. Baseline labs in the ER were obtained. Echocardiogram will be obtained to assess for LV function and valve status. As per cardiology note, patient was agreeable with mother and aunt in the room, while Dr. Donovan spoke with patient regarding illegal substance abuse. Lengthy discussion on the effects of substance abuse on the heart was discussed with the patient. Patient was very tearful and stated that he knows he needs assistance. Patient states he is just now beginning to feel better. He has had a few bites of applesauce without problems. He has been voiding. <Sheree Almeida - 08/10/17 16:28> Hospital Course Hospital Course: He received IVF's and potassium. An echo was ordered and was normal. His labs were normal by the next day and he felt better. He was accepted at [facility] rehab and was stable to be discharged for rehab. <Sheree Almeida - 08/10/17 16:28> Objective Vital signs: Temp Pulse Resp BP Pulse Ox 97.7 F 84 18 122/74 98 08/10/17 07:46 08/10/17 07:46 08/10/17 08:00 08/10/17 07:46 08/10/17 08:00 <Aung Jones - 08/17/17 16:40> Temp Pulse Resp BP Pulse Ox 97.7 F 84 18 122/74 98 08/10/17 07:46 08/10/17 07:46 08/10/17 08:00 08/10/17 07:46 08/10/17 08:00 <Sheree Almeida - 08/10/17 16:28> Narrative: - Constitutional no acute distress - *Routine HEENT Exam Head: Present: normocephalic, atraumatic Eye: Present: PERRL ENT: Present: mucous membranes moist, oropharynx clear, nares patent - *Routine Neck Exam Present: supple. Absent: carotid bruit, lymphadenopathy, thyromegaly - *Routine Respiratory Exam Present: CTA bilaterally (Anteriorly and posteriorly) - *Routine Cardiovascular Exam Present: RRR - *Routine Abdominal Exam Present: soft, normoactive bowel sounds. Absent: tenderness, distended, guarding, organomegaly, mass - *Routine Extremities Exam Present: full ROM. Absent: edema, calf tenderness - *Routine Neurological Exam Present: alert, oriented X3, moving all extremities, normal speech. Absent: tremors - Routine Psychiatric Exam Present: normal thought process, cooperative, anxious <Sheree Almeida - 08/10/17 16:28> Results Labs on day of discharge: Labs from last 24 hours 08/10/17 05:55 Sodium 142 Potassium 3.7 Chloride 107 Carbon Dioxide 26 D Anion Gap 12.7 BUN 6 L Creatinine 0.98 Estimated Creat Clear 170 Estimated GFR 98 Est GFR ( Amer) 118 Glucose 96 D Calcium 9.6 <Sheree Almeida - 08/10/17 16:28> DS: Diagnosis - Discharge Diagnosis (1) Ecstasy abuse Status: Acute (2) Drug abuse Status: Acute (3) Palpitations Status: Acute (4) Hypokalemia Status: Acute <Sheree Almeida - 08/10/17 16:24> (1) Ecstasy abuse Status: Acute (2) Drug abuse Status: Acute (3) Palpitations Status: Acute (4) Hypokalemia Status: Acute <Aung Jones - 08/17/17 16:40> Discharge Plan - Patient Discharge Instructions ACTIVITY: Continue current activity <Sheree Almeida - 08/10/17 16:28> DIET: regular diet <Sheree Almeida - 08/10/17 16:28> Patient Instructions: DI for Hypokalemia, DI for Drug Abuse and Drug Addiction <Aung Jones - 08/17/17 16:40> Forms: <Aung Jones - 08/17/17 16:40> - Follow up Plan Follow up with: <Aung Jones - 08/17/17 16:40> Disposition: Xfer Inpatient Rehab Fac <Aung Jones - 08/17/17 16:40 > Home Medications: Home Medications Medication Instructions Recorded Confirmed Type Sertraline HCl [Zoloft] 50 mg PO DAILY 08/08/17 08/09/17 History <Aung Jones - 08/17/17 16:40> Prescriptions/Medication Reconciliation: Continue Sertraline HCl [Zoloft] 50 mg PO DAILY <Aung Jones - 08/17/17 16:40> - Additional Information Additional Information: Concur with plan for discharge as outlined above. <Aung Jones - 08/17/17 16:40>
== END 2017-08-10 11:26 ==
LOC: ER 10:25 → 2ND 10:25
PROVIDERS: ADMIT Family Medicine; ATTEND Family Medicine

== ENCOUNTER → 2017-11-30 13:18 | Outpatient (CLI) | payer MEDICAID, SELFPAY ==
[2017-11-30 18:40] LABS: Basophils # 0.1 K/mm3 (0-0.2); Basophils % 0.8 % (0.1-2.0); Eosinophils # 0.2 K/mm3 (0.0-0.4); Eosinophils % 2.3 % (0.1-12.0); Hematocrit 44.6 % (42.0-52.0); Hemoglobin 14.8 g/dL (14.1-18.0); Lymphocytes # 1.9 K/mm3 (0.7-4.5); Mean Corpuscular HGB Conc 33.3 g/dL (31.8-35.4); Mean Corpuscular Hemoglobin 30.5 pg (27.0-31.2); Mean Corpuscular Volume 91.7 fl (80-94); Mean Platelet Volume 8.2 fl (7.4-10.4); Monocytes # 0.6 K/mm3 (0.1-1.0); Monocytes % 7.5 % (1.7-9.3); Neutrophils # 4.7 K/mm3 (1.8-7.8); Neutrophils % 63.4 % (37.0-80.0); Platelet Count 229 K/mm3 (142-424); Red Blood Count 4.86 M/mm3 (4.60-6.20); Red Cell Distribution Width 13.4 % (11.5-17.5); White Blood Count 7.4 K/mm3 (4.8-10.8)
[2017-11-30 18:59] LABS: Alanine Aminotransferase 24 U/L (12-78); Albumin Level 4.4 gm/dL (3.4-5.0); Albumin/Globulin Ratio 1.5 (1.1-1.8); Alkaline Phosphatase 100 U/L (46-116); Anion Gap 12.9 mEq/L (5-15); Aspartate Amino Transferase 19 U/L (15-37); Bilirubin,Total 0.5 mg/dL (0.2-1.0); Blood Urea Nitrogen 10 mg/dL (7-18); Calcium 9.9 mg/dL (8.5-10.1); Carbon Dioxide 30 mmol/L (21.0-32.0); Chloride 105 mmol/L (98-107); Chol/HDL Ratio 4.1 (1-3.5); Cholesterol 195 mg/dL (140-200); Creatinine Clearance Estimated 162 mL/min (0-300); Creatinine,Serum 1.04 mg/dL (0.70-1.30); Estimated Glomerular Filt Rate 90 ml/min (>60); GFR (African American) 109 ML/MIN (>60); Globulin 2.9 gm/dl (1.3-3.2); Glucose 93 mg/dL (74-106); HDL Cholesterol 48 mg/dL (27-67); LDL Cholesterol 131 mg/dL (0-130); Potassium 3.9 mmoL/L (3.5-5.1); Sodium 144 mmol/L (136-145); T4 (Thyroxine) 8.8 ug/dl (4.7-13.3); Thyroid Stimulating Hormone 1.14 uIU/ml (0.358-3.740); Total Protein,Serum 7.3 gm/dL (6.4-8.2); Triglycerides 78 mg/dL (30-200); VLDL Cholesterol 16 mg/dL (0-40)
[2017-11-30 20:21] LABS: Amphetamine/Metha Screen,Urine Negative ng/mL (<1000); Barbiturates Screen,Urine Negative ng/mL (<200); Benzodiazepines Screen,Urine Negative ng/mL (<200); Cannabinoid Screen,Urine Positive ng/mL (<50); Cocaine Screen,Urine Negative ng/mL (<300); Methadone Screen,Urine Negative ng/mL (<300); Opiate Screen,Urine Negative ng/mL (<300); Phencyclidine Screen,Urine Negative ng/mL (<25)
== END ==
PROVIDERS: PCP Physician Assistant; Visit Provider Physician Assistant
DX: R00.2 Palpitations (principal)
CPT/HCPCS: 80053; 80061; 80305; 84436; 84443; 85025; 93225; 93226

== ENCOUNTER → 2017-12-03 08:31 | Outpatient (CLI) | payer MEDICAID, SELFPAY ==
--- NOTE | 2017-12-03 08:33 | CA_ITS ---
CA echo doppler complete PROCEDURE: INDICATIONS FOR THE TEST: Chest pain + COPD Heart Murmur Tobacco Smoking+ Palpitations+ Fatigue Syncope Edema Hypertension Diabetes Mellitus Rheumatic Fever SOB EGAN Obesity Hyperlipidemia Family History HD Additional History PATIENT INFORMATION HEIGHT: 75 WEIGHT:220 GENDER: Male B/P:128/80 2-D/M-MODE INTERPRETATION: 2-D MEASUREMENTS OBSERVED VALUES IN CMS Right Ventricular Dimension (RVDd) 2.6 Interventricular Septum (Thickness)(IVsd) 1.0 Left Ventricular Internal Dimensions(LVIDd) 4.8 Left Ventricular Posterior Wall (Thickness)(LVPWd) 1.0 Aortic Root 3.3 Aortic Cusp Separation 2.0 Left Atrial Dimensions (LAD) 4.0 2D 1. Left atrium is normal size, left ventricle is normal size, there is no concentric left ventricular hypertrophy, visually estimated ejection fraction 55% with no regional wall motion abnormality. 2. The right atrium and right ventricle are normal size and contractility. 3. The aortic, mitral and tricuspid valvular grossly normal. 4. The pulmonic valve is poorly visualized. 5. No significant pericardial effusion noted. DOPPLER INTERROGATION: Doppler interrogation of the aortic, mitral and tricuspid valve reveals presence of mild mitral and tricuspid regurgitation, tricuspid regurgitation jet velocity is inadequate for calculation of the right ventricular systolic pressure, diastolic parameters are within normal range. CONCLUSION: 1. Normal left ventricular size, preserved left ventricular systolic function, visually estimated ejection fraction 55% with no regional wall motion abnormality, diastolic parameters are within normal range. 2. Mild mitral and tricuspid regurgitation of no hemodynamic significance. 3. No significant pericardial effusion noted.
== END ==
PROVIDERS: PCP Physician Assistant; Visit Provider Physician Assistant
DX: R07.9 Chest pain, unspecified (principal); R00.2 Palpitations
CPT/HCPCS: 93306

== ENCOUNTER → 2018-01-03 17:52 | Outpatient (CLI) | payer MEDICAID, SELFPAY | PROVIDERS: Visit Provider Physician Assistant | DX: L02.91 Cutaneous abscess, unspecified (principal) | CPT/HCPCS: 87070; 87077; 87186; 87205 ==

== ENCOUNTER → 2018-02-17 13:36 | Outpatient (CLI) | payer MEDICAID, SELFPAY ==
[2018-02-17 13:42] LABS: Microscopic, Urine URINE MICROSCOPIC (MICROSCOPIC)
[2018-02-17 14:25] LABS: Appearance,Urine CLEAR (Clear); Bilirubin,Urine Negative (Negative); Blood, Urine Negative (Negative); Color,Urine YELLOW (Yellow); Glucose,Urine (UA) Negative (Negative); Ketones,Urine Negative (Negative); Leukocyte Esterase,Urine Negative (Negative); Nitrate,Urine Negative (Negative); Protein,Urine Negative (Negative); Specific Gravity, Urine 1.025 (1.005-1.030); Urobilinogen,Urine 0.2 EU/dl (0.2)
[2018-02-17 14:44] LABS: Bacteria,Urine Trace /lpf
[2018-02-18 18:07] LABS: HIV Screen 4th Generation wRfx Non Reactive (Non Reactive); HSV 2 IgG, Type Spec <0.91 index (0.00-0.90)
[2018-02-23 12:57] LABS: Neisseria gonorrhoeae, NAA Positive (Negative)
== END ==
PROVIDERS: Visit Provider Nurse Practitioner Family
DX: Z20.2 Contact with and (suspected) exposure to infections with a predominantly sexual mode of transmission (principal); B00.1 Herpesviral vesicular dermatitis; Z20.6 Contact with and (suspected) exposure to human immunodeficiency virus [HIV]
CPT/HCPCS: 81001; 86695; 86703; 86790; 87491; 87591; G0432

== ENCOUNTER → 2018-05-30 09:39 | Outpatient (CLI) | payer MEDICAID, SELFPAY ==
[2018-05-30 10:16] LABS: Basophils % 0.5 % (0.1-2.0); Eosinophils # 0.2 K/mm3 (0.0-0.4); Eosinophils % 3.9 % (0.1-12.0); Hematocrit 43.1 % (42.0-52.0); Hemoglobin 14.7 g/dL (14.1-18.0); Lymphocytes % 35.8 % (10-50); Mean Corpuscular HGB Conc 34.2 g/dL (31.8-35.4); Mean Corpuscular Hemoglobin 30.2 pg (27.0-31.2); Mean Corpuscular Volume 88.5 fl (80-94); Mean Platelet Volume 7.2 fl (7.4-10.4); Monocytes # 0.5 K/mm3 (0.1-1.0); Neutrophils # 2.9 K/mm3 (1.8-7.8); Neutrophils % 51.7 % (37.0-80.0); Platelet Count 226 K/mm3 (142-424); Red Blood Count 4.87 M/mm3 (4.60-6.20); Red Cell Distribution Width 12.8 % (11.5-17.5); White Blood Count 5.7 K/mm3 (4.8-10.8)
[2018-05-30 11:28] LABS: Alanine Aminotransferase 25 U/L (12-78); Albumin Level 4.4 gm/dL (3.4-5.0); Albumin/Globulin Ratio 1.5 (1.1-1.8); Alkaline Phosphatase 89 U/L (46-116); Anion Gap 12.1 mEq/L (5-15); Aspartate Amino Transferase 10 U/L (15-37); Bilirubin,Total 0.5 mg/dL (0.2-1.0); Blood Urea Nitrogen 11 mg/dL (7-18); Calcium 9.7 mg/dL (8.5-10.1); Carbon Dioxide 28 mmol/L (21.0-32.0); Chloride 106 mmol/L (98-107); Creatinine,Serum 0.99 mg/dL (0.70-1.30); Estimated Glomerular Filt Rate 95 ml/min (>60); GFR (African American) 115 ML/MIN (>60); Glucose 91 mg/dL (74-106); Potassium 4.1 mmoL/L (3.5-5.1); Sodium 142 mmol/L (136-145); Thyroid Stimulating Hormone 0.88 uIU/ml (0.358-3.740); Total Protein,Serum 7.4 gm/dL (6.4-8.2)
== END ==
PROVIDERS: Visit Provider Internal Medicine Adolescent Medicine
DX: Z01.818 Encounter for other preprocedural examination (principal); K60.3 Anal fistula
CPT/HCPCS: 36415; 80053; 84443; 85025

== ENCOUNTER → 2019-10-28 11:11 | Outpatient (CLI) | payer OTHER, SELFPAY ==
[2019-10-28 11:51] LABS: Basophils # 0.1 K/mm3 (0-0.2); Basophils % 0.8 % (0.1-2.0); Eosinophils # 0.2 K/mm3 (0.0-0.4); Hematocrit 46.2 % (42.0-52.0); Hemoglobin 16.2 g/dL (14.1-18.0); Lymphocytes # 2.6 K/mm3 (0.7-4.5); Lymphocytes % 33.2 % (10-50); Mean Corpuscular HGB Conc 35.2 g/dL (31.8-35.4); Mean Corpuscular Hemoglobin 31.5 pg (27.0-31.2); Mean Corpuscular Volume 89.5 fl (80-94); Mean Platelet Volume 7.8 fl (7.4-10.4); Monocytes # 0.6 K/mm3 (0.1-1.0); Monocytes % 7.5 % (1.7-9.3); Neutrophils # 4.5 K/mm3 (1.8-7.8); Neutrophils % 56.4 % (37.0-80.0); Platelet Count 244 K/mm3 (142-424); Red Blood Count 5.16 M/mm3 (4.60-6.20); Red Cell Distribution Width 13.7 % (11.5-17.5); White Blood Count 7.9 K/mm3 (4.8-10.8)
[2019-10-28 13:44] LABS: Chloride 105 mmol/L (98-107); Potassium 3.7 mmoL/L (3.5-5.1); Sodium 141 mmol/L (136-145)
[2019-10-28 13:46] LABS: Blood Urea Nitrogen 11 mg/dl (9-20)
[2019-10-28 13:47] LABS: Alanine Aminotransferase 18 U/L (12-78); Albumin Level 4.5 g/dl (3.5-5.0); Albumin/Globulin Ratio 1.9 (1.1-1.8); Alkaline Phosphatase 81 U/L (38-126); Anion Gap 11.7 mEq/L (5-15); Aspartate Amino Transferase 29 U/L (17-59); Bilirubin,Total 0.7 mg/dl (0.2-1.3); Calcium 9.9 mg/dl (8.4-10.2); Carbon Dioxide 28 mmol/L (22.0-30.0); Estimated Glomerular Filt Rate 120 ml/min (>60); GFR (African American) 145 ML/MIN (>60); Globulin 2.4 g/dL (1.3-3.2); Glucose 104 mg/dl (74-100); Total Protein,Serum 6.9 g/dl (6.3-8.2)
== END ==
PROVIDERS: Visit Provider Internal Medicine Adolescent Medicine
DX: F10.10 Alcohol abuse, uncomplicated (principal)
CPT/HCPCS: 36415; 80053; 85025